=== PATIENT | female | born 1985 | race Caucasian/White ===

== ENCOUNTER → 2017-08-25 | Outpatient (CLI) | payer OTHER ==
--- NOTE | 2017-08-25 22:54 | MR ---
EXAMINATION TYPE: MR lumbar spine wo con DATE OF EXAM: 08/25/2017 COMPARISON: NONE HISTORY: LBP/BLE radic, numbness x 1 year TECHNIQUE: Multiplanar, multisequence imaging of the lumbar spine is performed without IV contrast. FINDINGS: Sagittal images of the lumbar spine show vertebral body heights and alignment to appear sat isfactory. There is disc desiccation L4-L5 and L5-S1 levels.. Disc space heights are fairly well main tained. No large posterior disc herniations are seen on sagittal images. The conus medullaris is nor mal in position and signal ending at mid L1 level. There is Modic type II degenerative change L5-S1 e ndplate. No significant spurring is seen. Axial images show at T12-L1 and L1-L2 levels to appear within normal limits. Axial images at L2-L3 level show left paracentral disc protrusion on axial image 20 mildly effacing a nterolateral thecal sac, bilateral neural foramina are patent. Axial images at L3-L4 level are felt within normal limits. Axial images at L4-L5 level shows mild broad-based posterior disc protrusion and mild facet degenerat jayleen changes bilaterally but spinal canal is preserved and bilateral neural foramina are patent. Axial images at L5-S1 level mild broad disc bulge and mild facet degenerative changes bilaterally. Sp inal canal is preserved. Bilateral neural foramina are patent. No suspicious retroperitoneal findings are seen. 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
== END | disposition home or self-care (01) ==
LOC: RADMRIMAIN 20:03
PROVIDERS: ATTEND Nurse Practitioner Acute Care
DX: M47.816 Spondylosis without myelopathy or radiculopathy, lumbar region (principal); Z88.8 Allergy status to other drugs, medicaments and biological substances
CPT/HCPCS: 72148